=== PATIENT | female | born 1960 | race Caucasian/White ===

== ENCOUNTER 2023-07-01 12:57 | Outpatient (CLI) | payer BC | END 2023-07-01 12:58 | disposition home or self-care (01) | LOC: NM 12:57 | PROVIDERS: ATTEND Internal Medicine Gastroenterology | DX: R10.13 Epigastric pain (principal) | CPT/HCPCS: 78227; A9537 ==

== ENCOUNTER 2023-10-23 09:44 | Outpatient (CLI) | payer BC ==
[2023-10-23 10:56] LABS: #Eosinphils 0.1 10x3/uL (0.0-0.5); #Monocytes 0.4 10x3/uL (0.0-1.1); #Neutrophils 2.4 10x3/uL (1.5-8.4); %Basophils 0.8 % (0.0-2.0); %Eosinophils 2.8 % (0.0-6.0); %Lymphocytes 19.9 % (18.0-47.0); %Monocytes 10.2 % (0.0-10.0); %Neutrophils 66.3 % (40.0-75.0); Hematocrit 35.6 % (34.9-44.5); Hemoglobin 12.1 g/dL (12.0-15.5); Mean Corpuscular Hemoglobin 30.3 pg (27.0-33.0); Mean Platelet Volume 9.1 fl (7.4-10.4); Platelet Count 433 10x3/uL (150-450); RBC Distribution Width 13.7 % (11.5-14.5); White Blood Cell (WBC) Count 3.6 10x3/uL (3.5-10.5)
[2023-10-23 11:20] LABS: ALT (SGPT) 26 U/L (8-55); AST (SGOT) 26 U/L (5-34); Albumin 4.4 g/dL (3.4-4.8); Alkaline Phosphatase 100 U/L (40-110); Anion Gap 16 mmol/L (10-20); BUN (Urea Nitrogen) 12 mg/dL (9.8-20.1); Bilirubin, Direct 0.1 mg/dL (0.1-0.3); Bilirubin, Total 0.3 mg/dL (0.2-1.2); Calc. Creatinine Clearance 0 mL/min (70-130); Calcium 9.4 mg/dL (7.8-10.44); Carbon Dioxide 25 mmol/L (23-31); Chloride 92 mmol/L (98-107); Estimated GFR 66; Glucose 99 mg/dL (80-115); Potassium 4.1 mmol/L (3.5-5.1); Protein, Total 7.4 g/dL (5.8-8.1); Sodium 129 mmol/L (136-145)
== END 2023-10-23 09:45 | disposition home or self-care (01) ==
LOC: LABBT 09:44
PROVIDERS: ATTEND Surgery
DX: Z01.818 Encounter for other preprocedural examination (principal); K81.1 Chronic cholecystitis
CPT/HCPCS: 80053; 80076; 85025; 93005; 93010

== ENCOUNTER 2023-11-01 07:05 | Day surgery (SDC) | payer BC ==
[2023-10-23 10:18] VITALS: BMI 23.1
[2023-11-01] MEDS ORDERED: EPINEPHrine 1 MG/ML VIAL ONE (08:14)
[2023-11-01] MEDS ORDERED: Indocyanine Green 25 MG/10 ML VIAL ONE (08:14)
[2023-11-01] MEDS ORDERED: Bupivacaine 0.25% HCL 30 ML VIAL ONE (08:15)
[2023-11-01] MEDS ORDERED: fentaNYL PF 100 MCG/2 ML SYRINGE ONE (08:21)
[2023-11-01] MEDS ORDERED: PROPOFOL 20 ML ONE (08:21)
[2023-11-01] MEDS ORDERED: Rocuronium Bromide 10 MG/ML (10ML VIAL) ONE (08:22)
[2023-11-01] MEDS ORDERED: Sodium Chloride 0.9% 100 ML ONE (09:01)
[2023-11-01] MEDS ORDERED: cefOXitin 2 GM VIAL ONE (09:01)
[2023-11-01] MEDS ORDERED: Lidocaine 1% PF 5 ML VIAL ONE (09:20)
[2023-11-01] MEDS ORDERED: PHENYLEPHRINE-NS 100 MCG/ML 10 ML SYRINGE ONE (09:29)
[2023-11-01] MEDS ORDERED: Ondansetron PF 4 MG/2 ML Vial ONE (09:30)
[2023-11-01] MEDS ORDERED: Dexamethasone 20 MG/5 ML VIAL ONE (09:30)
[2023-11-01] MEDS ORDERED: Ketorolac Tromethamine 30 MG (1 mL) VIAL ONE (09:30)
[2023-11-01] MEDS ORDERED: SUGAMMADEX SODIUM 200 MG/2 ML VIAL ONE (09:59)
[2023-11-01] MEDS ORDERED: fentaNYL 50 mcg/mL 1 mL Vial ONE ×2 (10:36→11:00)
== END 2023-11-01 12:18 | disposition home or self-care (01) ==
LOC: SDC 07:05
PROVIDERS: ATTEND Surgery
PROC: 0FT44ZZ Resection of Gallbladder, Percutaneous Endoscopic Approach (ICD-10-PCS; principal; 2023-11-01)
DX: K80.10 Calculus of gallbladder with chronic cholecystitis without obstruction (principal); E04.1 Nontoxic single thyroid nodule; R01.1 Cardiac murmur, unspecified; Z79.890 Hormone replacement therapy; Z79.899 Other long term (current) drug therapy; Z90.89 Acquired absence of other organs; Z90.710 Acquired absence of both cervix and uterus; Z88.5 Allergy status to narcotic agent; Z88.0 Allergy status to penicillin
CPT/HCPCS: 88304; C1776; J0171; J0694; J1100; J1885; J2405; J2704; J3010; J3490; S0020

== ENCOUNTER 2023-11-06 10:49 | Observation (INO) | payer BC ==
[~2023-11-06 10:49] MED LIST: Iopamidol-370 76% 500 ML MDV (1 ML CHARGE) ONE
[2023-11-06 12:36] LABS: Bacteria/HPF None Seen HPF (None Seen); Bilirubin Negative (Negative); Blood, Urine Negative (Negative); CAUTI Indications for Culture Fever or rigors; Clarity Clear (Clear); Glucose, Urine (Dipstick) Normal (Negative); Ketone, Urine Negative (Negative); Leukocyte Negative Leu/uL (Negative); Nitrite Negative (Negative); Protein, Urine (Dipstick) Negative (Neg-Trace); RBC/HPF 0-3 HPF (0-3); Specific Gravity, Urine 1.024 (1.002-1.036); Squamous Epithelial 0-3 HPF (0-3); Urobilinogen Normal mg/dL (Less than 2); WBC/HPF 0-3 HPF (0-3)
[2023-11-06 12:40] LABS: Urine Culture Reflex No No
[2023-11-06 13:00] LABS: #Basophils 0.1 thou/uL (0.0-0.2); #Eosinphils 0.5 thou/uL (0.0-0.7); #Monocytes 0.5 thou/uL (0.11-0.59); #Neutrophils 4.2 thou/uL (1.40-6.50); %Basophils 0.9 % (0.0-1.0); %Eosinophils 7.8 % (0.0-10.0); %Lymphocytes 11.7 % (21.0-51.0); %Monocytes 8.5 % (0.0-10.0); %Neutrophils 70.9 % (42.0-75.0); Hematocrit 33.5 % (36.0-47.0); Hemoglobin 11.6 g/dL (12.0-16.0); Mean Corpuscular HGB CONC 34.6 g/dL (32.0-36.0); Mean Corpuscular Hemoglobin 30.4 pg (27.0-31.0); Mean Corpuscular Volume 87.9 fl (78.0-98.0); Platelet Count 431 10x3/uL (130-400); RBC Distribution Width 13.6 % (11.5-14.5); Red Blood Cell (RBC) Count 3.81 mill/uL (4.20-5.40); White Blood Cell (WBC) Count 5.9 10x3/uL (4.8-10.8)
[2023-11-06 13:24] LABS: ALT (SGPT) 21 U/L (8-55); AST (SGOT) 18 U/L (5-34); Albumin 3.7 g/dL (3.4-4.8); Alkaline Phosphatase 90 U/L (40-110); Anion Gap 15 mmol/L (10-20); BUN (Urea Nitrogen) 13 mg/dL (9.8-20.1); Bilirubin, Total 0.7 mg/dL (0.2-1.2); Calc. Creatinine Clearance 0 mL/min (70-130); Calcium 8.5 mg/dL (7.8-10.44); Carbon Dioxide 24 mmol/L (23-31); Chloride 85 mmol/L (98-107); Estimated GFR 45; Globulin 3.3 g/dL (2.4-3.5); Glucose 88 mg/dL (80-115); Potassium 4.1 mmol/L (3.5-5.1); Sodium 120 mmol/L (136-145)
[2023-11-06] MEDS ORDERED: Ketorolac Tromethamine 30 MG (1 mL) VIAL ONE (13:26)
[2023-11-06] MEDS ORDERED: diphenhydrAMINE 50 MG/ML VIAL ONE (13:26)
[2023-11-06] MEDS ORDERED: Ondansetron PF 4 MG/2 ML Vial ONE (13:26)
[2023-11-06] MEDS ORDERED: Pantoprazole 40 MG VIAL ONE (13:49)
[2023-11-06] MEDS ORDERED: Ondansetron ODT 4 MG TAB PO PRN (14:37)
[2023-11-06] MEDS ORDERED: Sodium Chloride 0.9% 1,000 ML IV SCH (14:45)
[2023-11-06 14:50] LABS: SARS-CoV-2 NAA Rapid Test Not Detected (NotDetected)
[2023-11-06] MEDS ORDERED: Enoxaparin 40 MG (0.4 mL) SYRINGE SC SCH (16:00)
[2023-11-06] MEDS ORDERED: IBUPROFEN PO PRN (17:48)
[2023-11-06] MEDS ORDERED: PSEUDOEPHEDRINE HCL PO PRN (17:48)
[2023-11-06 18:20] VITALS: BMI 22.3
[2023-11-06] MEDS: Acetaminophen 325 MG TAB PO PRN (20:54)
[2023-11-06] MEDS: DULoxetine 60 MG CAP PO SCH (20:55)
[2023-11-06] MEDS: traZODone HCl 150 MG TAB PO SCH (20:55)
[2023-11-06] MEDS: Senokot S 8.6-50 MG TAB PO SCH (20:55)
[2023-11-06] MEDS: Bisoprolol Fumarate/HCTZ 5 mg/6.25 mg Tablet PO SCH (21:03)
[2023-11-06 21:05] LABS: Anion Gap 14 mmol/L (10-20); BUN (Urea Nitrogen) 13 mg/dL (9.8-20.1); Calc. Creatinine Clearance 44 mL/min (70-130); Calcium 8.7 mg/dL (7.8-10.44); Carbon Dioxide 25 mmol/L (23-31); Chloride 93 mmol/L (98-107); Estimated GFR 49; Glucose 101 mg/dL (80-115); Potassium 4.6 mmol/L (3.5-5.1); Sodium 127 mmol/L (136-145)
[2023-11-06] MEDS: ALPRAZolam 0.5 MG TAB PO PRN (21:10)
[2023-11-06] MEDS: Levothyroxine Sodium 25 MCG TAB PO SCH (23:43)
[2023-11-06] MEDS: Levothyroxine Sodium 112 MCG TAB PO SCH (23:43)
[2023-11-07 06:54] LABS: #Eosinphils 0.4 thou/uL (0.0-0.7); #Monocytes 0.5 thou/uL (0.11-0.59); #Neutrophils 2.5 thou/uL (1.40-6.50); %Basophils 0.7 % (0.0-1.0); %Eosinophils 9.4 % (0.0-10.0); %Monocytes 12.1 % (0.0-10.0); %Neutrophils 60.6 % (42.0-75.0); Hematocrit 27.5 % (36.0-47.0); Hemoglobin 9.2 g/dL (12.0-16.0); Mean Corpuscular HGB CONC 33.5 g/dL (32.0-36.0); Mean Corpuscular Hemoglobin 30.5 pg (27.0-31.0); Mean Platelet Volume 9.3 fL (7.4-10.4); Platelet Count 365 10x3/uL (130-400); RBC Distribution Width 13.9 % (11.5-14.5); Red Blood Cell (RBC) Count 3.02 mill/uL (4.20-5.40); White Blood Cell (WBC) Count 4.1 10x3/uL (4.8-10.8)
[2023-11-07 07:03] LABS: Mean Corpuscular Volume 91.1 fl (78.0-98.0)
[2023-11-07] MEDS: Pantoprazole 40 MG VIAL IVP SCH ×2 (08:01→20:29)
[2023-11-07] MEDS: Enoxaparin 40 MG (0.4 mL) SYRINGE SC SCH (08:01)
[2023-11-07] MEDS: Cholecalciferol 1,000 UNITS (25 MCG) TAB PO SCH (08:03)
[2023-11-07] MEDS: Calcium Carbonate 600 MG TAB PO SCH (08:03)
[2023-11-07] MEDS: Senokot S 8.6-50 MG TAB PO SCH ×2 (08:03→20:29)
[2023-11-07 08:33] LABS: Anion Gap 8 mmol/L (10-20); BUN (Urea Nitrogen) 9 mg/dL (9.8-20.1); Calc. Creatinine Clearance 76 mL/min (70-130); Calcium 6.4 mg/dL (7.8-10.44); Carbon Dioxide 20 mmol/L (23-31); Chloride 111 mmol/L (98-107); Estimated GFR 95; Glucose 63 mg/dL (80-115); Potassium 3.2 mmol/L (3.5-5.1); Sodium 136 mmol/L (136-145)
[2023-11-07] MEDS ORDERED: ALPRAZolam 0.5 MG TAB PO SCH (09:00)
[2023-11-07 09:18] LABS: Magnesium 1.3 mg/dL (1.6-2.6)
[2023-11-07] MEDS ORDERED: Magnesium 2 GM/50 ML(in water) 2 GM in Premix 1 BAG IVPB SCH (09:30)
[2023-11-07] MEDS ORDERED: Midazolam HCl 2 mg/2 ml Vial ONE (09:49)
[2023-11-07] MEDS ORDERED: PROPOFOL 20 ML ONE (09:49)
[2023-11-07] MEDS ORDERED: Calcium Gluconate 100 MG/ML 10 ML IVPB SCH (10:00)
[2023-11-07] MEDS ORDERED: CALCIUM GLUC 1 GM/NS 50 ML 1 GM in Premix 1 BAG IVPB SCH (10:00)
[2023-11-07] MEDS ORDERED: Calcium Chloride 1 GM/10 ML Abboject SYRINGE ONE (10:14)
[2023-11-07] MEDS: Acetaminophen 325 MG TAB PO PRN ×2 (11:25→20:37)
[2023-11-07] MEDS: Potassium Chloride 20 MEQ in Premix 1 BAG IVPB SCH ×2 (11:26→18:53)
[2023-11-07] MEDS ORDERED: diphenhydrAMINE 50 MG/ML VIAL IVP SCH (12:45)
[2023-11-07] MEDS: Bisacodyl 10 MG SUPP PR SCH ×2 (14:04→14:12)
[2023-11-07] MEDS ORDERED: Mineral Oil ENEMA PR SCH (14:30)
[2023-11-07] MEDS ORDERED: Polyethylene Glycol 3350 17 GM Packet PO SCH (16:30)
[2023-11-07 17:26] LABS: Hematocrit 24.2 % (36.0-47.0); Mean Corpuscular HGB CONC 33.1 g/dL (32.0-36.0); Mean Corpuscular Hemoglobin 30.9 pg (27.0-31.0); Mean Corpuscular Volume 93.4 fl (78.0-98.0); Mean Platelet Volume 9.2 fL (7.4-10.4); Platelet Count 269 10x3/uL (130-400); RBC Distribution Width 14.1 % (11.5-14.5); Red Blood Cell (RBC) Count 2.59 mill/uL (4.20-5.40); White Blood Cell (WBC) Count 7.8 10x3/uL (4.8-10.8)
[2023-11-07] MEDS: traZODone HCl 150 MG TAB PO SCH (20:29)
[2023-11-07] MEDS: Bisoprolol Fumarate/HCTZ 5 mg/6.25 mg Tablet PO SCH (20:29)
[2023-11-07] MEDS: Hydrocortisone 2.5%/Pramoxine 1% CRM 30 GM TUBE TOP SCH (20:29)
[2023-11-07] MEDS: DULoxetine 60 MG CAP PO SCH (20:29)
[2023-11-07] MEDS: ALPRAZolam 0.5 MG TAB PO PRN (20:37)
[2023-11-07 21:58] LABS: Magnesium 1.8 mg/dL (1.6-2.6)
[2023-11-07 23:23] LABS: Anion Gap 14 mmol/L (10-20); BUN (Urea Nitrogen) 7 mg/dL (9.8-20.1); Calc. Creatinine Clearance 69 mL/min (70-130); Calcium 8.6 mg/dL (7.8-10.44); Carbon Dioxide 21 mmol/L (23-31); Chloride 101 mmol/L (98-107); Estimated GFR 84; Glucose 124 mg/dL (80-115); Potassium 4.1 mmol/L (3.5-5.1); Sodium 132 mmol/L (136-145)
[2023-11-08] MEDS ORDERED: Magnesium 2 GM/50 ML(in water) 2 GM in Premix 1 BAG IVPB SCH (02:30)
[2023-11-08] MEDS: Levothyroxine Sodium 25 MCG TAB PO SCH (05:43)
[2023-11-08] MEDS: Levothyroxine Sodium 112 MCG TAB PO SCH (05:44)
[2023-11-08 07:28] LABS: #Eosinphils 0.4 thou/uL (0.0-0.7); #Monocytes 0.6 thou/uL (0.11-0.59); %Basophils 0.2 % (0.0-1.0); %Eosinophils 3.3 % (0.0-10.0); %Lymphocytes 7.2 % (21.0-51.0); %Monocytes 5.4 % (0.0-10.0); %Neutrophils 83.5 % (42.0-75.0); Hematocrit 29.3 % (36.0-47.0); Hemoglobin 9.8 g/dL (12.0-16.0); Mean Corpuscular HGB CONC 33.4 g/dL (32.0-36.0); Mean Corpuscular Hemoglobin 30.4 pg (27.0-31.0); Mean Platelet Volume 9.2 fL (7.4-10.4); RBC Distribution Width 14.2 % (11.5-14.5); Red Blood Cell (RBC) Count 3.22 mill/uL (4.20-5.40); White Blood Cell (WBC) Count 10.8 10x3/uL (4.8-10.8)
[2023-11-08 07:54] LABS: Platelet Count 407 10x3/uL (130-400)
[2023-11-08 07:56] LABS: Anion Gap 11 mmol/L (10-20); BUN (Urea Nitrogen) 6 mg/dL (9.8-20.1); Calc. Creatinine Clearance 68 mL/min (70-130); Calcium 8.5 mg/dL (7.8-10.44); Carbon Dioxide 24 mmol/L (23-31); Chloride 101 mmol/L (98-107); Estimated GFR 83; Glucose 99 mg/dL (80-115); Potassium 4.1 mmol/L (3.5-5.1); Sodium 132 mmol/L (136-145)
[2023-11-08] MEDS ORDERED: Polyethylene Glycol 3350 17 GM Packet PO SCH (09:00)
[2023-11-08] MEDS: Cholecalciferol 1,000 UNITS (25 MCG) TAB PO SCH (09:38)
[2023-11-08] MEDS: Senokot S 8.6-50 MG TAB PO SCH (09:38)
[2023-11-08] MEDS: Pantoprazole 40 MG VIAL IVP SCH (09:38)
[2023-11-08] MEDS: Calcium Carbonate 600 MG TAB PO SCH (09:38)
[2023-11-08] MEDS: Enoxaparin 40 MG (0.4 mL) SYRINGE SC SCH (09:39)
[2023-11-08] MEDS: Acetaminophen 325 MG TAB PO PRN (09:40)
[2023-11-08] MEDS: Hydrocortisone 2.5%/Pramoxine 1% CRM 30 GM TUBE TOP SCH (10:11)
[2023-11-08] MEDS ORDERED: SUMAtriptan Succinate 25 MG TAB PO SCH (11:45)
[2023-11-08 15:07] VITALS: BP 137/85; TEMP 98.2
== END 2023-11-08 14:36 | disposition home or self-care (01) ==
LOC: ERS 10:49 → SJJU 14:19 → T4-B 23:52
PROVIDERS: ADMIT Family Medicine; ATTEND Family Medicine
PROC: 0DD68ZX Extraction of Stomach, Via Natural or Artificial Opening Endoscopic, Diagnostic (ICD-10-PCS; principal; 2023-11-07)
DX: K92.0 Hematemesis (principal); K25.9 Gastric ulcer, unspecified as acute or chronic, without hemorrhage or perforation; K64.4 Residual hemorrhoidal skin tags; K31.89 Other diseases of stomach and duodenum; K59.00 Constipation, unspecified; D50.9 Iron deficiency anemia, unspecified; E87.1 Hypo-osmolality and hyponatremia; N17.9 Acute kidney failure, unspecified; E83.51 Hypocalcemia; E87.6 Hypokalemia; E83.42 Hypomagnesemia; G43.909 Migraine, unspecified, not intractable, without status migrainosus; E03.9 Hypothyroidism, unspecified; F41.1 Generalized anxiety disorder; R50.9 Fever, unspecified; Z87.11 Personal history of peptic ulcer disease; Z90.89 Acquired absence of other organs; Z90.49 Acquired absence of other specified parts of digestive tract; Z79.890 Hormone replacement therapy; Z79.899 Other long term (current) drug therapy; Z88.0 Allergy status to penicillin; Z88.5 Allergy status to narcotic agent; Z91.018 Allergy to other foods; Z90.12 Acquired absence of left breast and nipple
CPT/HCPCS: 36415; 71046; 74177; 78226; 80048; 80053; 81001; 83735; 85025; 86850; 86900; 86901; 88305; 88342; 93005; 93010; 96361; 96372; 96374; 96375; 96376; A9537; C9113; G0378; J0780; J1200; J1650; J1885; J2250; J2405; J2704; J3475; J3480; J7050; Q0162; Q9967